=== PATIENT | male | born 1960 | race Caucasian/White ===

== ENCOUNTER 2019-10-27 07:26 | Emergency (ER) | payer SELFPAY ==
--- NOTE | 2019-10-27 08:15 | UC ---
Skin Complaint HPI - HPI Summary HPI Summary: 59 year old male presents with complaint of right sided neck rash for one day and left ear pain and drainage for the past few weeks. Denies fever nor chills, no significant pain with rash. Muffled hearing left ear but no significant pain. - History of Current Complaint Chief Complaint: UCSkin Time Seen by Provider: 10/27/19 07:52 Stated Complaint: SKIN COMPLAINT Hx Obtained From: Patient Pain Intensity: 0 - Allergy/Home Medications Allergies/Adverse Reactions: Allergies Allergy/AdvReac Type Severity Reaction Status Date / Time Penicillins Allergy See Comment Verified 10/27/19 07:44 Home Medications: Home Medications Azithromyxin DARRON (NF) [Z-Darron (Zithromax) 250 mg tabs #6] 2 tab PO .TODAY, THEN 1 DAILY #6 tab 10/27/19 [Rx] ValACYclovir (*) [Valtrex 1 GM(*)] 1 gm PO Q8H 7 Days #21 tab 10/27/19 [Rx] PMH/Surg Hx/FS Hx/Imm Hx Previously Healthy: Yes Other History Of: Anticoagulant Therapy - Aspirin taken. Negative For: HIV, Hepatitis B, Hepatitis C - Surgical History Surgical History: Yes Surgery Procedure, Year, and Place: T&A - Family History Known Family History: Positive: None - Social History Alcohol Use: Weekly Substance Use Type: None Smoking Status (MU): Current Every Day Smoker Type: Cigarettes Amount Used/How Often: 1 PPD Length of Time of Smoking/Using Tobacco: 40 Have You Smoked in the Last Year: Yes Review of Systems All Other Systems Reviewed And Are Negative: Yes Constitutional: Positive: Negative Skin: Positive: Rash - right posterior neck. ENT: Positive: Ear Ache - left for a few weeks with drainage Respiratory: Negative: Shortness Of Breath, Cough Cardiovascular: Positive: Negative Gastrointestinal: Positive: Negative Genitourinary: Positive: Negative Motor: Positive: Negative Neurovascular: Positive: Negative Musculoskeletal: Positive: Negative Neurological/Mental Status: Positive: Negative Psychological: Positive: Negative Is Patient Immunocompromised?: No Physical Exam Triage Information Reviewed: Yes Appearance: Well-Appearing, No Pain Distress Vital Signs: Initial Vital Signs Temp 98 F 10/27/19 07:38 Pulse 81 10/27/19 07:38 Resp 14 10/27/19 07:38 BP 167/107 03/29/20 07:38 Pulse Ox 97 10/27/19 07:38 Vital Signs Reviewed: Yes Eye Exam: Normal ENT: Positive: TM red - left with dullness and drainage. No obvious perforation. Neck: Positive: Supple, Nontender, No Lymphadenopathy Respiratory: Positive: Lungs clear. Negative: Crackles, Rhonchi, Wheezing Cardiovascular: Positive: RRR, No Murmur Abdomen Description: Positive: Nontender, Soft Musculoskeletal Exam: Normal Neurological Exam: Normal Psychological Exam: Normal Skin: Positive: Rashes - Right posterior neck, C4 dermatome. Vessicular rash on erythematous base. Course/Dx - Course Course Of Treatment: Repeat b/p 157/88. - Diagnoses Provider Diagnosis: Varicella zoster, Left otitis media Discharge ED - Sign-Out/Discharge Documenting (check all that apply): Patient Departure All imaging exams completed and their final reports reviewed: Yes - Discharge Plan Condition: Stable Disposition: HOME Prescriptions: Azithromyxin DARRON (NF) [Z-Darron (Zithromax) 250 mg tabs #6] 2 tab PO .TODAY, THEN 1 DAILY #6 tab ValACYclovir (*) [Valtrex 1 GM(*)] 1 gm PO Q8H 7 Days #21 tab Patient Education Materials: Shingles (ED), Ear Infection (ED) Referrals: No Primary Care Phys,NOPCP [Primary Care Provider] - Additional Instructions: Take antibiotic and antiviral as prescribed. Your can take ibuprofen 600mg every 8 hours as needed for pain. Also, your blood pressure is elevated. Follow a low sodium diet, I recommend follow-up for your rash and left ear infection with a Primary Care Physician (list has been provided). - Billing Disposition and Condition Condition: STABLE Disposition: Home
[2019-10-27 08:26] VITALS: BP 157/88
== END 2019-10-27 08:26 | disposition home or self-care (01) ==
LOC: UCCORT 07:26
DX: B02.9 Zoster without complications (principal); H66.92 Otitis media, unspecified, left ear; Z79.82 Long term (current) use of aspirin; Z88.0 Allergy status to penicillin; F17.210 Nicotine dependence, cigarettes, uncomplicated
CPT/HCPCS: 99202; G0463